=== PATIENT | female | born 1940 | race Caucasian/White ===

== ENCOUNTER 2017-09-18 06:02 | Emergency (ER) | payer MEDICARE, BC ==
--- NOTE | 2017-09-18 06:37 | Emergency Department Record ---
History of Present Illness - General Chief complaint: Mouth sores/ulcers Stated complaint: SORE IN MOUTH Time Seen by Provider: 09/18/17 06:25 Source: Patient Mode of Arrival: Ambulatory Limitations: No limitations - History of Present Illness Initial comments: 76 yo female presents with sinus pressure, nasal drainage, occasional nose bleeding, sore throat, sores in her mouth for about 2 weeks. No fever. She has right sided facial pressure. She has patch like ulcers of the mouth. She started Nystatin 3 days. No cough. She has noted swollen glands as well. She is on Methotrexate for RA. No other rash. She has a PCP and ENT but has not seen either for this issue. MD complaint: Sore throat, Other Onset/Timin -: Week(s) (2) Severity: Moderate Quality: Aching Consistency: Constant Improves with: Swallowing Worsens with: Swallowing Context-Epistaxis: Other (Occasional) Context- Ear: Other (Pressure sensation) - Related Data Home Medications Medication Instructions Recorded Confirmed Last Taken Lisinopril [Zestril] 5 mg PO DAILY 09/18/17 09/18/17 Unknown Meloxicam 15 mg PO DAILY 09/18/17 09/18/17 Unknown Methotrexate [Xatmep] 2.5 mg PO DAILY 09/18/17 09/18/17 Unknown Previous Rx's Medication Instructions Recorded Doxycycline Monohydrate 100 mg PO BID #20 tablet 09/18/17 Allergies Allergy/AdvReac Type Severity Reaction Status Date / Time latex [LATEX] Allergy Unknown Unverified 08/15/13 10:14 Quinolones [QUINOLONES] Allergy Unknown Unverified 08/15/13 10:14 Travel Screening - Travel/Exposure Within Last 30 Days Have you traveled within the last 30 days?: No Review of Systems Constitutional: Denies: Chills, Fever, Malaise, Weakness Eyes: Denies: Eye discharge, Eye pain, Photophobia, Vision change ENT: Reports: Congestion, Ear pain, Throat pain Respiratory: Reports: Cough Cardiovascular: Denies: Chest pain, Palpitations, Syncope Endocrine: Denies: Fatigue Gastrointestinal: Denies: Abdominal pain, Diarrhea, Nausea, Vomiting Genitourinary: Denies: Dysuria, Urgency Musculoskeletal: Denies: Arthralgia, Back pain, Myalgia Skin: Denies: Bruising, Change in color, Rash Neurological: Denies: Headache (facial pressure on the right maxillary area), Numbness, Weakness Hematological/Lymphatic: Denies: Anemia, Easy bleeding, Easy bruising Past Medical History - SOCIAL HISTORY Smoking Status: Never smoker Alcohol Use: None Drug Use: None - RESPIRATORY Hx Respiratory Disorders: No - CARDIOVASCULAR Hx Cardio Disorders: Yes Comment:: Mitral Valve Prolapse - NEURO Hx Neuro Disorders: No - GI Hx GI Disorders: No - Hx Genitourinary Disorders: No - ENDOCRINE Hx Endocrine Disorders: No - MUSCULOSKELETAL Hx Musculoskeletal Disorders: Yes Hx Arthritis: Yes (Rheumatoid) - PSYCH Hx Psych Problems: No - HEMATOLOGY/ONCOLOGY Hx Hematology/Oncology Disorders: No Family Medical History Any Significant Family History?: Yes Hx Cancer: Father *Cancer Comment: Colon Hx HTN: Father, Mother Physical Exam - General General Appearance: Alert, Oriented x3, Cooperative, No acute distress Limitations: No limitations - Head Head exam: Atraumatic, Normal inspection Image of Face/Head: 1 - maxillary tenderness - Eye Eye exam: Normal appearance, PERRL. negative: Conjunctival injection, Periorbital swelling, Periorbital tenderness, Scleral icterus - ENT ENT exam: Mucous membranes moist, Normal external ear exam, TM's normal bilaterally. negative: Normal exam, Mucous membranes dry, Normal orophraynx Ear exam: Normal external inspection Nasal Exam: Discharge, Dried blood, Sinus tenderness (right fromntal) Teeth exam: Normal inspection Throat exam: Other (plaque like ulcerations with some white plaques on the in buccal surface both cheeks). negative: Normal inspection, Tonsillar erythema - Neck Neck exam: Lymphadenopathy (few small anterior cervical swollen LN, mobile) - Respiratory Respiratory exam: Normal lung sounds bilaterally. negative: Respiratory distress, Rhonchi, Stridor, Wheezes - Cardiovascular Cardiovascular Exam: Regular rate, Normal rhythm, Normal heart sounds - GI/Abdominal GI/Abdominal exam: Soft. negative: Tenderness - Rectal Rectal exam: Deferred - exam: Deferred - Extremities Extremities exam: Normal inspection - Neurological Neurological exam: Alert, Oriented X3 - Psychiatric Psychiatric exam: Normal affect, Normal mood - Skin Skin exam: Dry, Intact, Normal color, Warm Course Vital Signs 09/18/17 06:07 Temperature 99.0 F Pulse Rate 73 Respiratory 20 Rate Blood Pressure 110/65 Pulse Ox 99 - Reevaluation(s) Reevaluation #1: 09/18/17 06:41 The vitals were reviewed No acute changes She clinical has symptoms consistent with sinusitis Given her methotrexate use she may be immune susceptible to infections Clinically she appears well, non toxic Disposition Disposition: Discharge Clinical Impression: Sinusitis Qualifiers: Sinusitis location: maxillary Chronicity: acute Recurrence: not specified as recurrent Qualified Code(s): J01.00 - Acute maxillary sinusitis, unspecified Disposition: Home, Self-Care Condition: (1) Good Instructions: Sinusitis (ED), Oral Candidiasis (ED) Additional Instructions: Call your doctor and your ENT for follow up of your symptoms Be seen immediately if you have fever, cough, short of breath, worse or any new concerns Continue your Nystatin as well discussed Prescriptions: Doxycycline Monohydrate 100 mg PO BID #20 tablet Forms: Patient Portal Access Time of Disposition: 06:43 Quality - Quality Measures Quality Measures: N/A - Blood Pressure Screening Does Patient Have Any of the Following: No Blood Pressure Classification: Normal BP Reading Systolic Measurement: 110 Diastolic Measurement: 65 Screening for High Blood Pressure: < Normal BP, F/U Not Required > [G8783]
== END 2017-09-18 06:56 | disposition home or self-care (01) ==
LOC: ER 06:02
DX: J01.00 Acute maxillary sinusitis, unspecified (principal); J02.9 Acute pharyngitis, unspecified; M06.9 Rheumatoid arthritis, unspecified
CPT/HCPCS: 99282

== ENCOUNTER 2019-01-13 04:05 | Emergency (ER) | payer MEDICARE ==
--- NOTE | 2019-01-13 04:16 | Emergency Department Record ---
History of Present Illness - General Chief complaint: Flank Pain Stated complaint: L FLANK PAIN Time Seen by Provider: 01/13/19 04:13 Source: Patient Mode of Arrival: Ambulatory Limitations: No limitations - History of Present Illness Initial comments: pt came in for l flank painthat is a constant dull pain but becomes sharp at times. she fell on a step 2 weeks ago and hit that area she states near her kidney MD Complaint: Other Onset/Timin -: Week(s) Quality: Dull, Sharp Consistency: Constant Worsens with: Movement - Related Data Home Medications Medication Instructions Recorded Confirmed Last Taken Aripiprazole [Abilify] 10 mg PO DAILY 01/13/19 01/13/19 01/12/19 Cholecalciferol (Vitamin D3) 2,000 unit PO DAILY 01/13/19 01/13/19 01/12/19 [Vitamin D3] Denosumab [Prolia] 60 mg SQ 01/13/19 01/12/19 Allergies Allergy/AdvReac Type Severity Reaction Status Date / Time latex [LATEX] Allergy Unknown Unverified 07/15/18 17:02 Quinolones [QUINOLONES] Allergy Unknown Unverified 07/15/18 17:02 Review of Systems Reviewed: No additional complaints except as noted below Constitutional: Reports: As per HPI. Denies: Chills, Fever, Malaise, Night sweats, Weakness, Weight change Eyes: Reports: As per HPI. Denies: Eye discharge, Eye pain, Photophobia, Vision change ENT: Reports: As per HPI. Denies: Congestion, Dental pain, Ear pain, Epistaxis, Hearing loss, Throat pain Respiratory: Reports: As per HPI. Denies: Cough, Dyspnea, Hemoptysis, Stridor, Wheezes Cardiovascular: Reports: As per HPI. Denies: Arrhythmia, Chest pain, Dyspnea on exertion, Edema, Murmurs, Orthopnea, Palpitations, Paroxysmal nocturnal dyspnea, Rheumatic Fever, Syncope Endocrine: Reports: As per HPI. Denies: Fatigue, Heat or cold intolerance, Polydipsia, Polyuria Gastrointestinal: Reports: As per HPI. Denies: Abdominal pain, Constipation, Diarrhea, Hematemesis, Hematochezia, Melena, Nausea, Vomiting Genitourinary: Reports: As per HPI. Denies: Abnormal menses, Discharge, Dyspareunia, Dysuria, Frequency, Hematuria, Incontinence, Retention, Urgency Musculoskeletal: Reports: As per HPI. Denies: Arthralgia, Back pain, Gout, Joint swelling, Myalgia, Neck pain Skin: Reports: As per HPI. Denies: Bruising, Change in color, Change in hair/nails, Lesions, Pruritus, Rash Neurological: Reports: As per HPI. Denies: Abnormal gait, Confusion, Headache, Numbness, Paresthesias, Seizure, Tingling, Tremors, Vertigo, Weakness Psychiatric: Reports: As per HPI. Denies: Anxiety, Auditory hallucinations, Depression, Homicidal thoughts, Suicidal thoughts, Visual hallucinations Hematological/Lymphatic: Reports: As per HPI. Denies: Anemia, Blood Clots, Easy bleeding, Easy bruising, Swollen glands Past Medical History - SOCIAL HISTORY Smoking Status: Never smoker Alcohol Use: None Drug Use: None - RESPIRATORY Hx Respiratory Disorders: No - CARDIOVASCULAR Hx Cardio Disorders: Yes Comment:: Mitral Valve Prolapse - NEURO Hx Neuro Disorders: No - GI Hx GI Disorders: No - Hx Genitourinary Disorders: No - ENDOCRINE Hx Endocrine Disorders: No - MUSCULOSKELETAL Hx Musculoskeletal Disorders: Yes Hx Arthritis: Yes (Rheumatoid) - PSYCH Hx Psych Problems: No - HEMATOLOGY/ONCOLOGY Hx Hematology/Oncology Disorders: No Family Medical History Any Significant Family History?: Yes *Cancer Comment: Colon Physical Exam - General General Appearance: Alert, Oriented x3, Cooperative, Mild distress - Head Head exam: Normal inspection - Eye Eye exam: Normal appearance, PERRL, EOMI Pupils: Normal accommodation - ENT ENT exam: Normal exam, Mucous membranes moist, Normal external ear exam, Normal orophraynx Ear exam: Normal external inspection. negative: External canal tenderness Nasal Exam: Normal inspection. negative: Discharge, Sinus tenderness Mouth exam: Normal external inspection, Tongue normal Teeth exam: Normal inspection. negative: Dental caries Throat exam: Normal inspection. negative: Tonsillar erythema, Tonsillar exudate - Neck Neck exam: Normal inspection, Full ROM. negative: Tenderness - Respiratory Respiratory exam: Normal lung sounds bilaterally. negative: Respiratory distress - Cardiovascular Cardiovascular Exam: Regular rate, Normal rhythm, Normal heart sounds - GI/Abdominal GI/Abdominal exam: Soft, Normal bowel sounds. negative: Tenderness - Rectal Rectal exam: Deferred - exam: Deferred - Extremities Extremities exam: Normal inspection, Full ROM, Normal capillary refill. negative: Tenderness - Back Back exam: Reports: CVA tenderness (L), Full ROM, Muscle spasm, Tenderness, Vertebral tenderness. Denies: Rash noted - Neurological Neurological exam: Alert, CN II-XII intact, Normal gait, Oriented X3 - Psychiatric Psychiatric exam: Normal affect, Normal mood - Skin Skin exam: Dry, Intact, Normal color, Warm Course Vital Signs 01/13/19 04:10 Temperature 97.9 F Pulse Rate [ 73 Pulse Ox Probe] Respiratory 24 Rate Blood Pressure 176/76 [Left Arm] Pulse Ox 98 Medical Decision Making - Lab Data Result diagrams: 01/13/19 04:37 01/13/19 04:37 Disposition Disposition: Transfer Clinical Impression: Thoracic vertebral fracture Qualifiers: Encounter type: initial encounter Thoracic vertebra fracture level: T11 Fracture type: closed Fracture morphology: wedge compression Qualified Code(s): S22.080A - Wedge compression fracture of T11-T12 vertebra, initial encounter for closed fracture Disposition: Still a Patient at [facility] Transfer To: [facility] Reason For Transfer: T11 fracture Accepting Physician: tete tim and jhoana Time Discussed w/Accepting Physician: 05:58 Forms: Patient Portal Access Quality - Quality Measures Quality Measures: N/A - Blood Pressure Screening Does Patient Have Any of the Following: No Blood Pressure Classification: Hypertensive Reading Systolic Measurement: 165 Diastolic Measurement: 79 Screening for High Blood Pressure: < First Hypertensive BP, F/U Documented > [G8950] First Hypertensive Follow-up Interventions: Follow-up with rescreen GT 1 day and LT 4 weeks.
[2019-01-13 04:47] LABS: ABSOLUTE NEUTROPHIL COUNT 3.09; BASO % 0.7 % (0-6); EOS % 5.5 % (0-6); GRAN % 54.4 % (47-80); HEMATOCRIT 34.2 % (35.0-47.0); HEMOGLOBIN 10.9 gm/dl (11.6-16.0); LYMPH % 29.9 % (16-45); MEAN CELL VOLUME 93.4 fl (81-97); MEAN CORPUSCULAR HGB CONC 31.9 g/dl (32-36); MEAN PLATELET VOLUME 9.1 fl (7.4-10.4); MONO % 9.5 % (0-9); PLATELET COUNT 201 K/uL (130-400); RED BLOOD COUNT 3.66 M/uL (3.80-5.40); RED CELL DISTRIBUTION WIDTH 12.9 % (11.5-14.5); WHITE BLOOD COUNT W/O DIFF 5.7 K/uL (4.2-12.2)
[2019-01-13 04:49] LABS: MEAN CORPUSCULAR HEMOGLOBIN 29.7 pg (27-33); URINE APPEARANCE CLEAR; URINE BILIRUBIN NEGATIVE (NEGATIVE); URINE BLOOD TRACE-I (NEGATIVE); URINE COLOR YELLOW; URINE GLUCOSE (UA) NEGATIVE (NEGATIVE); URINE KETONE NEGATIVE (NEGATIVE); URINE LEUKOCYTE ESTERASE TRACE (NEGATIVE); URINE NITRITE NEGATIVE (NEGATIVE); URINE PROTEIN NEGATIVE (NEGATIVE); URINE UROBILINOGEN 0.2 E.U./dL (0.20 - 1.00)
[2019-01-13 05:00] LABS: URINE RBC 0 - 2 (NONE SEEN); URINE SQUAMOUS EPITHELIAL CELL 0 - 2 /hpf; URINE WBC 0 - 2 (0-2/hpf)
[2019-01-13 05:01] LABS: BILIRUBIN,TOTAL 0.3 mg/dL (0.2-1.0)
[2019-01-13 05:02] LABS: TOTAL PROTEIN 7.2 g/dL (6.6-8.7)
[2019-01-13 05:06] LABS: ALB/GLOB RATIO 1.6 (1.1-1.8); ALBUMIN 4.4 g/dL (4.0-5.0)
[2019-01-13] MEDS ORDERED: MORPHINE SULFATE 5 MG/ML VIAL IVP ONE (05:52)
--- NOTE | 2019-01-17 09:57 | CT SCAN REPORT ---
EXAM: CT OF THE ABDOMEN AND PELVIS WITHOUT CONTRAST HISTORY: LEFT BACK PAIN AT KIDNEY LEVEL FOR 5-6 DAYS. PRIOR LUMBAR FUSION. TECHNIQUE: Routine noncontrast CT examination of the abdomen and pelvis was performed. Oral contrast was not utilized. Lack of oral and IV contrast utilization limits evaluation of the bowel and solid viscera respectively. Comparison: CT of the abdomen and pelvis without contrast dated 07/07/13. FINDINGS: Evaluation of the upper abdomen is limited by increased image noise from the patient's arms which were not elevated above her head. Beam hardening artifact from orthopedic hardware within the lower lumbar spine also limits evaluation. There is mild linear scarring versus atelectasis within the lung bases. Ther is a possible tiny dependent right pleural effusion. No suspicious focal abnormality is demonstrated within the liver, spleen, pancreas, adrenal glands, nor kidneys. No obstructive uropathy. Evaluation of the gallbladder is limited by incomplete distention and artifact. No definite gallstone or gross gallbladder wall thickening. No biliary ductal dilatation. No intraabdominal nor retroperitoneal lymphadenopathy. There is diffuse atherosclerosis without aneurysmal dilatation of the abdominal aorta nor iliac arteries though there is a peripherally calcified aneurysm involving the distal splenic artery measuring 13 mm in maximum diameter. The uterus is retroflexed. No pelvic mass nor adenopathy. No free pelvic fluid. There is mild fat density prominence in the left inguinal canal consistent with lipoma or a small fat filled inguinal hernia. No gross bowel dilatation nor bowel wall thickening. There is a large amount of stool within the proximal and mid colon. The appendix is visualized and normal in appearance. There is mild diverticulosis of the left colon without evidence of diverticulitis. No ascites nor free intraperitoneal air. Post laminectomy and diskectomy changes are noted at the L4-L5 level. There is posterior fusion of L4 and L5 with bilateral pedicle screws and their connecting rods in place. There is moderate superior end plate compression deformity of the T11 vertebral body with approximately 50-60% vertebral height loss. This is either acute or subacute. There is associated retropulsion of the posterior superior margin of the vertebral body causing ventral sac flattening with mild central canal stenosis. Mild perivertebral soft tissue swelling is noted at this level. The etiology of this is indeterminate. No suspicious lytic or blastic bone lesion. IMPRESSION: 1. NO CT EVIDENCE OF AN ACUTE INTRAABDOMINAL NOR INTRAPELVIC PROCESS. THERE IS A LARGE AMOUNT OF STOOL IN THE PROXIMAL AND MID PORTIONS OF THE COLON. 2. DIVERTICULOSIS OF THE LEFT COLON WITHOUT EVIDENCE OF DIVERTICULITIS. 3. MILD FAT DENSITY PROMINENCE IN THE LEFT INGUINAL CANAL CONSISTENT WITH LIPOMA OR SMALL FAT FILLED INGUINAL HERNIA. 4. POSSIBLE SMALL DEPENDENT RIGHT PLEURAL EFFUSION. 5. MODERATE SUPERIOR END PLATE COMPRESSION DEFORMITY OF THE T11 VERTEBRAL BODY, DISCUSSED IN DETAIL ABOVE. 6. 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 THIS HAS NOT SIGNIFICANTLY CHANGED SINCE 07/07/13. JOB NUMBER: [id number] [facility]
== END 2019-01-13 06:36 | disposition short-term general hospital (02) ==
LOC: ER 04:05
DX: S22.080A Wedge compression fracture of T11-T12 vertebra, initial encounter for closed fracture (principal); W10.9XXA Fall (on) (from) unspecified stairs and steps, initial encounter
CPT/HCPCS: 74176; 80053; 81001; 85025; 96374; 99285

== ENCOUNTER 2019-01-18 15:00 | Inpatient (IN) | payer MEDICARE ==
[2019-01-18] MEDS ORDERED: MELATONIN 5 MG TABLET PO PRN (16:04)
[2019-01-18] MEDS: OXYCODONE HCL/APAP 5MG/325MG TABLET PO PRN ×2 (18:22→23:03)
[2019-01-18] MEDS: ATORVASTATIN 20 MG TABLET PO SCH (23:03)
[2019-01-18] MEDS: CALCIUM CARB/VITAMIN D 500MG/200IU PO SCH (23:03)
[2019-01-19] MEDS: OXYCODONE HCL/APAP 5MG/325MG TABLET PO PRN ×3 (06:14→21:17)
--- NOTE | 2019-01-19 10:35 | History & Physical ---
History of Present Illness - Date Date of Service for History & Physical: 01/22/19 - History of Present Illness Admitting Diagnosis: compression fracture t11 History of Present Illness: 78 yo female presents for swing bed admission s/p fall and T11 compression fx. Pt reports that she was walking up her porch steps, carrying groceries, caught her foot on the opposite side, fell backwards on the steel base for TV antenna. Pt reports that she did not get evaluated for 9-10 days, presenting to ER 01-16-19 for back pain. Pt at [facility] for PT/OT related to recent fall and compression fx. Pt to wear back brace at all time when OOB. Pt is alert and oriented x 4 at this time but documentation from neuropsych evreynaldo while inpt has limited her ability to make medical decisions. 01/19/19 Pt in no distress, sitting up in chair with brace in place, dressed for the day at time of assessment. Pt moving all extremities, repositioning self in chair with little difficulty. Pt does not appear to be in any distress. PCP Afshin Hidalgo General - Cognitive Patterns Orientation: Person, Responds to Name, Recognizes Familiar Faces or Places - Communication Preferred Language?: [employer] Required: No Level of Education: College Preferred Method of Learning: Reading Comprehension Ability: Impairment Able to Read: Yes Able to Write: Yes Select best description of speech pattern: Clear Speech Ability to express ideas and wants: Usually Understood Understanding verbal content: Usually Understands - Psychosocial Well-Being Usual Living Arrangement: Spouse - Physical Functioning Activity Level: Up with assist x1 Turning: Self ad rosa ROM Ability: Moves all extremities Assistive Devices: 2 Wheel Walker Ambulation Ability: Needs Assist Bed Mobility: Independent Transfer Ability: Needs Assist Bathing Ability: Needs Assist Personal Hygiene: Needs Assist Dressing Ability: Needs Assist Eating (Feeding) Ability: Independent Toileting Ability: Needs Assist Administer Own Medication: Needs Assist - Continence Bowel Pattern: Normal for Patient Bladder Pattern: Normal - Dental Status Unable to examine: No Broken or loosely fitting full or partial dentures: No No natural teeth or tooth fragment(s) (edentulous): No Abnormal mouth tissue (ulcers, masses, oral lesions, etc.): No Obvious or likely cavity or broken natural teeth: No Inflamed or bleeding gums or loose natural teeth: No Mouth/facial pain, discomfort or difficulty chewing: No - Nutrition Screening Poor oral intake > 1 week: No Unplanned weight loss in specified time frame: No Nutrition Support via tube feedings or parenteral nutrition: No Pressure Ulcer: No Significantly underweight define as BMI <18.5 kg/m2: No Albumin <2.5mg/dL: No Persistent nausea/vomiting/diarrhea >3 days: No Difficulty chewing/swallowing/mouth sores: No Admitting Diagnosis: No Nutrition Risk Score: Low Risk Review of Systems Constitutional: Denies: Chills Eyes: Denies: Eye discharge ENT: Denies: Congestion Cardiovascular: Denies: Arrhythmia, Chest pain, Dyspnea on exertion Endocrine: Denies: Fatigue Gastrointestinal: Denies: Abdominal pain Musculoskeletal: Reports: Back pain Neurological: Reports: Confusion (reported by referring facility), Weakness. Denies: Numbness, Paresthesias, Tingling Past Medical History - SOCIAL HISTORY Smoking Status: Never smoker - SURGICAL HISTORY Past Surgical History: BACK - RESPIRATORY Hx Respiratory Disorders: No - CARDIOVASCULAR Hx Cardio Disorders: Yes Hx Hypertension: Yes Comment:: Mitral Valve Prolapse - NEURO Hx Neuro Disorders: Yes Comment:: memory loss, confusion - GI Hx GI Disorders: Yes Hx Reflux: Yes - Hx Genitourinary Disorders: No - ENDOCRINE Hx Endocrine Disorders: No Hx Diabetes: No Hx Thyroid Disease: Yes (goiter) - MUSCULOSKELETAL Hx Musculoskeletal Disorders: Yes Hx Arthritis: Yes (Rheumatoid) Hx Back Injury: Yes (comp fx t11) - PSYCH Hx Psych Problems: No - HEMATOLOGY/ONCOLOGY Hx Hematology/Oncology Disorders: No Family Medical History Any Significant Family History?: Yes *Cancer Comment: Colon H&P Meds/Allergies - Allergies Allergies: Allergies Allergy/AdvReac Type Severity Reaction Status Date / Time latex [LATEX] Allergy Unknown Unverified 07/15/18 17:02 Quinolones [QUINOLONES] Allergy Unknown Unverified 07/15/18 17:02 - Active Medications Active Medications: Current Medications Aripiprazole (Aripiprazole) 20 mg PO DAILY [facility] Atorvastatin Calcium (Lipitor) 40 mg PO QHS [facility] Last Admin: 01/18/19 23:03 Dose: 40 mg Documented by: Calcium/Vitamin D (Calcium 500+D Tablet) 1 tab PO BID [facility] Last Admin: 01/18/19 23:03 Dose: 1 tab Documented by: Enoxaparin Sodium (Lovenox) 40 mg SQ DAILY [facility] Fluoxetine HCl (Prozac) 20 mg PO DAILY [facility] Folic Acid () 1 mg PO DAILY [facility] Losartan Potassium (Losartan Potassium) 100 mg PO DAILY [facility] Magnesium Oxide (Mag Ox) 400 mg PO DAILY [facility] Melatonin (Melatonin) 10 mg PO QHS PRN PRN Reason: SLEEP Meloxicam (Mobic) 15 mg PO DAILY [facility] Oxycodone/Acetaminophen (Percocet 5-325 Mg Tablet) 1 udtab PO Q6H PRN PRN Reason: PAIN - MILD TO MODERATE (1-7) Last Admin: 01/19/19 06:14 Dose: 1 udtab Documented by: Polyethylene Glycol (Miralax) 17 gm PO DAILY [facility] Vitamin D (Vitamin D3) 1,000 unit PO DAILY [facility] Physical Exam - Vital Signs Vital Signs: Vital Signs - Last 24 Hrs Temp Pulse Resp BP Pulse Ox 01/18/19 22:45 98.9 F 81 16 113/61 97 01/18/19 15:30 97.8 F 81 16 137/67 95 - General General Appearance: Alert, Oriented x3, Cooperative, No acute distress - Head Head exam: Atraumatic - Eye Eye exam: Normal appearance, PERRL, Conjunctival injection Pupils: Normal accommodation - ENT ENT exam: Normal exam, Mucous membranes moist Ear exam: Normal external inspection Nasal Exam: Normal inspection - Neck Neck exam: Normal inspection - Respiratory Respiratory exam: Normal lung sounds bilaterally - Cardiovascular Cardiovascular Exam: Regular rate, Normal rhythm, Normal heart sounds Peripheral Pulses: 3+: Radial (R), Radial (L), Dorsalis Pedis (R), Dorsalis Pedis (L) - GI/Abdominal GI/Abdominal exam: Normal bowel sounds - Rectal Rectal exam: Deferred - exam: Deferred - Back Back exam: Reports: Tenderness - Neurological Neurological exam: Abnormal gait, CN II-XII intact, Oriented X3 - Psychiatric Psychiatric exam: Normal affect, Normal mood - Skin Skin exam: Dry, Intact Discharge Potential - Discharge Needs Community Services Used Prior to Admission: None Patient Discharge Plan Description: Return Home Community Services Needed at Discharge: Home Health Aide, Home Health Nurse, Occupational Therapy, Physical Therapy, Transportation, Pathways to Better Health Plan - Swing Bed Certification Initial Certification Due: 01/18/19 14 Day Re-Cert Due: 02/01/19 44 Day Re-Cert Due: 03/03/19 74 Day Re-Cert Due: 04/02/19 - Detailed Diagnosis and Plan (1) Physical deconditioning Status: Acute Base Code: R53.81 - OTHER MALAISE Comment: 01/19/19 -PT and OT eval today and treatment to start -pt up and OOB daily and for all meals with brace on (2) Thoracic vertebral fracture Status: Acute Qualifiers: Encounter type: initial encounter Thoracic vertebra fracture level: T11 Fracture type: closed Fracture morphology: wedge compression Qualified Code(s): S22.080A - Wedge compression fracture of T11-T12 vertebra, initial encounter for closed fracture Base Code: S22.009A - UNSP FRACTURE OF UNSP THORACIC VERTEBRA, INIT FOR CLOS FX Comment: 01/19/19 -T11 compression wedge fx -pain control with percocet 5/325 q6 hr PRN at this time and will attempt to transition to norco before d/c. pt was ordered 5-20mg q4 hrs while inpt but that was not continued based on diagnositics, age, and risk/benefit -back brace on at all times while OOB (3) DVT prophylaxis Status: Acute Base Code: Z29.9 - ENCOUNTER FOR PROPHYLACTIC MEASURES, UNSPECIFIED Comment: lovenox 40mg SQ daily for DVT prophylaxis, pt has high risk r/t imobility and age (4) Code status needs review Status: Acute Base Code: AHD4999 - Comment: 01/19/19 -pt has DPOA paperwork in chart but does not specify code status outside of exsiting limiting illness and pt is not able to make medical decisions on her own -awaiting (DPOA) to arrive and discuse code status -pt has arrived, pt to be full code and then re-evaluate for prognosis at that time
--- NOTE | 2019-01-19 10:49 | Rehab Evaluation ---
Patient Information - Patient Information Diagnosis: T11 Compression Fracture Ordered Treatment: PT Evaluate and Treat Status: Initial Evaluation Surgery: No History: Detail (Patient was admitted to a swing bed on 01/18/19.) Past Medical/Surgical Hx: PAST MEDICAL/SURGICAL HISTORY Past Surgical History BACK PMH - Respiratory Hx Respiratory Disorders No PMH - Cardiovascular Hx Cardiovascular Disorders Yes Hx Hypertension Yes Comment: Mitral Valve Prolapse PMH - Neuro Hx Neurological Disorders Yes Comment: memory loss, confusion PMH - GI Hx Gastrointestinal Disorders Yes Hx Gastroesophageal Reflux Yes PMH - Hx Genitourinary Disorders No PMH - Endocrine Hx Endocrine Disorders No Hx Diabetes No Hx Thyroid Disease Yes: goiter PMH - Musculoskeletal Hx Musculoskeletal Disorders Yes Hx Arthritis Yes: Rheumatoid Hx Back Injury Yes: comp fx t11 Hx Osteoporosis Yes PMH - Psych Hx Psychiatric Problems No PMH - Hematology/Oncology Hx Hematology/Oncology No Disorders Premorbid Status: Detail (Patient stated that she was independent in ADLs of cooking, laundry, and housework prior to her injury. She reported that she was able to walk community distances independently without an AD and could independently negotiate the 5 stairs in and out of her home.) Precautions: [place], Fall, Other (Patient wears a TLSO that may be put on at the edge of the bed. No bending or twisting.) - Time With Patient Total Time Spent With Patient (Min): 30 Treatment Procedures: Detail (Initial evaluation; low complexity Patient was left in the bedside chair with the call light and bedside table within reach. The chair alarm was set and the nursing staff was notified of her position.) Subjective Information - Subjective Information Per Patient (Patient reported that she had no pain at the time of the evaluation. She reports that she has some cramping in her feet and calves at times.) Objective Data - Pain Pain Present: No - Mental Status Patient Orientation: Person (Patient was able to identify herself, birthdate, and age.), Place (Patient was able to identify where she was at.), Time (Patient was able to identify the month, year, and her prior accident.) - Visual Perception Appears within normal limits for therapeutic activities - ROM Within normal limits (Patient's AROM is within normal limits for functional activities.) - Strength/Tone Not within normal limits (LE Strength: bilateral hip flexion 4/5, bilateral hip abduction and adduction 5/5 in sitting, bilateral knee extension 5/5, bilateral knee flexion 4/5, bilateral ankle dorsiflexion 5/5) - Coordination Appears within normal limits for therapeutic activities - Bed Mobility Needs Assist (Patient was not assessed for bed mobility at this time due to patient being in bedside chair.) - Transfers Independent (Patient was able to perform sit to stand and stand to sit independently.) - Balance Balance Sitting: Good Balance Standing: Good (The Tinetti Assessment tool was completed with a score of 26/28 putting the patient in the low fall risk category. The Cruz Balance test was started to test higher functioning balance skills to assess patient's balance with these types of tasks. With the tasks that have been tested thus far, patient has some difficulties maintaining balance with these types of tasks.) - Sensation Intact - Gait Detail (Patient was able to ambulate 60 feet over smooth surfaces with a front- wheeled walker with supervision. She ambulates with a reciprocal gait pattern. Patient ambulated without a walker for 10 feet, and was steady on her feet. She reported that she experiences less pain when walking with a walker.) Therapy Assessment - Therapy Assessment Detail (Patient presents with decreased balance, weakness, and gait ab normalities that make her a good candidate for swing bed therapy services. Patient demonstrates some impulsiveness and safety judgement risks that cause her to be unsafe at times. Therapy will help patient to return to her previous functional status before returning home.) Problem List - Problem List Physical Therapy Problem List: Detail (1. Decreased balance 2. Weakness in LEs 3. Gait abnormalities 4. Decreased ability to climb stairs) Goals - Goals Physical Therapy Goals: 1. Patient will be able to ambulate community distances with or without an assistive device with supervision for safety to return to her prior functional level following discharge. 2. Patient will be able to ascend and descend 5 stairs safely and correctly to be able to get in and out of her home with supervision for safety. 3. Patient's balance will be formally assessed using the Cruz Balance scale to measure her higher level balance abilities. 4. Patient will be independent in a HEP to help increase strength of LEs to maintain her functional status. Prognosis - Prognosis Good Plan - Plan Physical Therapy Plan: Patient will be seen for 1-2 sessions, M-F for gait training, stair training, therapeutic exercise, therapeutic activities, HEP instruction, and neuromuscular re-education.
[2019-01-19] MEDS: CHOLECALCIFEROL 1,000 UNIT TABLET PO SCH (11:01)
[2019-01-19] MEDS: ENOXAPARIN 40 MG/0.4 ML SYR SQ SCH (11:01)
[2019-01-19] MEDS: MELOXICAM 7.5 MG TABLET PO SCH (11:02)
[2019-01-19] MEDS: MAGNESIUM OXIDE 400 MG TABLET PO SCH (11:02)
[2019-01-19] MEDS: FLUOXETINE HCL 20 MG CAPSULE PO SCH (11:02)
[2019-01-19] MEDS: FOLIC ACID 1 MG TABLET PO SCH (11:02)
[2019-01-19] MEDS: CALCIUM CARB/VITAMIN D 500MG/200IU PO SCH ×2 (11:02→21:16)
[2019-01-19] MEDS: LOSARTAN POTASSIUM 100 MG TABLET PO SCH (11:02)
--- NOTE | 2019-01-19 11:02 | Rehab Evaluation ---
Patient Information - Patient Information Diagnosis: T11 Compression Fracture Ordered Treatment: OT Evaluate and Treat Status: Initial Evaluation Surgery: No History: Detail (Patient was admitted to a swing bed on 01/18/19.) Past Medical/Surgical Hx: PAST MEDICAL/SURGICAL HISTORY Past Surgical History BACK PMH - Respiratory Hx Respiratory Disorders No PMH - Cardiovascular Hx Cardiovascular Disorders Yes Hx Hypertension Yes Comment: Mitral Valve Prolapse PMH - Neuro Hx Neurological Disorders Yes Comment: memory loss, confusion PMH - GI Hx Gastrointestinal Disorders Yes Hx Gastroesophageal Reflux Yes PMH - Hx Genitourinary Disorders No PMH - Endocrine Hx Endocrine Disorders No Hx Diabetes No Hx Thyroid Disease Yes: goiter PMH - Musculoskeletal Hx Musculoskeletal Disorders Yes Hx Arthritis Yes: Rheumatoid Hx Back Injury Yes: comp fx t11 Hx Osteoporosis Yes PMH - Psych Hx Psychiatric Problems No PMH - Hematology/Oncology Hx Hematology/Oncology No Disorders Premorbid Status: Detail (Patient stated that she was independent in IADLs of cooking, laundry, and housework prior to her injury. She reported that she was able to walk community distances independently without an AD and could independently negotiate the 5 stairs in and out of her home.) Social History: Detail (Pt lives with spouse in a 1 story house. She has 5 steps and 2 railings at the front entrance and 4 steps and 1 railing at the rear entrance. She has a tub/shower combination with a grab bar and a standard height toilet, no grab bar. She typically sits down into the tub to bathe.) Precautions: [place], Fall, Other (Patient wears a TLSO that may be put on at the edge of the bed. No bending or twisting.) - Time With Patient Total Time Spent With Patient (Min): 40 Treatment Procedures: Detail (OT eval low complexity) Subjective Information - Subjective Information Per Patient Objective Data - Pain Pain Present: No - Mental Status Patient Orientation: Oriented x3 (Pt oriented x 3 and able to follow all commands.) - Visual Perception Appears within normal limits for therapeutic activities (Pt wears glasses for reading.) - ROM Within normal limits (Yovany UE AROM WNL) - Strength/Tone Within normal limits ([place] UE strength 4+/5 throughout) - Coordination Appears within normal limits for therapeutic activities - Transfers Independent (Ind with sit to stand from recliner chair height) - Balance Balance Sitting: Good Balance Standing: Good - Sensation Intact - Gait Detail (Pt able to ambulate in hallway with 2 wheeled walker and short distance in room without an assistive device.) - ADL's/IADL's Detail (Pt able to stand at sink and complete oral hygiene and brushing hair. Pt and nursing report she was Ind with total body dressing this am with assist for TLSO.) Therapy Assessment - Therapy Assessment Detail (Pt presents with high level of functioning. Need to further assess tub transfer and IADL tasks to ensure safety and Ind.) Problem List - Problem List Occupational Therapy Problem List: Detail (1. Need to further assess tub transfer and bathing. 2. Need to further assess IADL tasks.) Goals - Goals Occupational Therapy Goals: 1. Pt will be safe and Ind with tub transfer and bathing. 2. Pt will be Ind with kitchen tasks. Prognosis - Prognosis Good Plan - Plan Occupational Therapy Plan: OT 2-4 times per week to address goals as above.
[2019-01-19] MEDS: ARIPIPRAZOLE 20 MG PO SCH (11:03)
[2019-01-19] MEDS: POLYETHYLENE GLY 17 GM PACKET PO SCH (11:03)
[2019-01-19] MEDS: CALCIUM CARBONATE 500 MG TAB.CHEW PO PRN (20:21)
[2019-01-19] MEDS: ATORVASTATIN 20 MG TABLET PO SCH (21:16)
[2019-01-20] MEDS: OXYCODONE HCL/APAP 5MG/325MG TABLET PO PRN ×3 (04:48→21:03)
[2019-01-20] MEDS: MELOXICAM 7.5 MG TABLET PO SCH (09:16)
[2019-01-20] MEDS: ENOXAPARIN 40 MG/0.4 ML SYR SQ SCH (09:16)
[2019-01-20] MEDS: CHOLECALCIFEROL 1,000 UNIT TABLET PO SCH (09:16)
[2019-01-20] MEDS: FLUOXETINE HCL 20 MG CAPSULE PO SCH (09:16)
[2019-01-20] MEDS: FOLIC ACID 1 MG TABLET PO SCH (09:17)
[2019-01-20] MEDS: CALCIUM CARB/VITAMIN D 500MG/200IU PO SCH ×2 (09:17→21:04)
[2019-01-20] MEDS: MAGNESIUM OXIDE 400 MG TABLET PO SCH (09:17)
[2019-01-20] MEDS: LOSARTAN POTASSIUM 100 MG TABLET PO SCH (09:17)
[2019-01-20] MEDS: POLYETHYLENE GLY 17 GM PACKET PO SCH (09:18)
[2019-01-20] MEDS: ARIPIPRAZOLE 20 MG PO SCH (09:20)
--- NOTE | 2019-01-20 11:17 | Physical Therapy Tx Note ---
Physical Therapy Tx Note - Treatment Note Tolerated: Good Total Time Spent With Patient: 30 Physical Therapy Tx Note: Detail (Patient was standing with nursing in room upon [employer] [employer] arrival. Patient states no new complaints. Patient ambulated 378 feet without assistive device CGA x1. Patient descended and ascended 3 steps with using stairwell railing CGA x1. Patient transferred sit to and from stand CGA x1. Patient performed the following balance exercises x30 seconds each: feet together, feet together looking up and down, feet together looking side to side, feet together with eyes closed, feet together with pertubations, and stride stance. Patient had 1 seated rest break with standing balance exercises, sit to and from stand CGA x1. Patient transferred sit to and from stand CGA x1. Patient performed the following exercises without hand hold x20 feet each CGA x1: marching, walking backwards, sidestepping, and tandem walking with one hand hold. Patient transferred sit to and from stand CGA x1. Patient performed the following standing exercises x10 reps each: heel raises, toe raises, hip abduction, hip extension, hamstring curls, and squats x8. Patient tolerated treatment well. Patient displays decreased balance with tandem walking, and backward walking. Patient reports some fatigue with hamstring curls, and squats. Patient displays some impulsivity with turning during ambulation. Patient was left seated in chair with call light within reach.) Physical Therapy Problem List: Detail (1. Decreased balance 2. Weakness in LEs 3. Gait abnormalities 4. Decreased ability to climb stairs) Physical Therapy Goals: 1. Patient will be able to ambulate community distances with or without an assistive device with supervision for safety to return to her prior functional level following discharge. 2. Patient will be able to ascend and descend 5 stairs safely and correctly to be able to get in and out of her home with supervision for safety. 3. Patient's balance will be formally assessed using the Cruz Balance scale to measure her higher level balance abilities. 4. Patient will be independent in a HEP to help increase strength of LEs to maintain her functional status. Prognosis: Good Physical Therapy Plan: Patient will be seen for 1-2 sessions, M-F for gait training, stair training, therapeutic exercise, therapeutic activities, HEP ins truction, and neuromuscular re-education.
--- NOTE | 2019-01-20 13:58 | Physical Therapy Tx Note ---
Physical Therapy Tx Note - Treatment Note Tolerated: Good Total Time Spent With Patient: 30 Physical Therapy Tx Note: Detail (Patient was walking in room upon [facility] arrival. Patient states she just took her brace off. Patient donned brace with assistance. Patient ambulated 282 feet without assistive device CGA x1. Patient states she's tired this afternoon, and low back sore. Patient performed the following exercises seated in chair x10-20 reps each: marching, LAQ, hamstring curls with red theraband, glut squeezes, hip abduction with red theraband, adductor squeezes, heel raises, and toe raises. Patient reports feeling tired after treatment. Patient was left seated in chair with call light within reach.) Physical Therapy Problem List: Detail (1. Decreased balance 2. Weakness in LEs 3. Gait abnormalities 4. Decreased ability to climb stairs) Physical Therapy Goals: 1. Patient will be able to ambulate community distances with or without an assistive device with supervision for safety to return to her prior functional level following discharge. 2. Patient will be able to ascend and descend 5 stairs safely and correctly to be able to get in and out of her home with supervision for safety. 3. Patient's balance will be formally assessed using the Cruz Balance scale to measure her higher level balance abilities. 4. Patient will be independent in a HEP to help increase strength of LEs to maintain her functional status. Prognosis: Good Physical Therapy Plan: Patient will be seen for 1-2 sessions, M-F for gait training, stair training, therapeutic exercise, therapeutic activities, HEP instruction, and neuromuscular re-education.
[2019-01-20] MEDS: ATORVASTATIN 20 MG TABLET PO SCH (21:04)
[2019-01-21] MEDS: OXYCODONE HCL/APAP 5MG/325MG TABLET PO PRN ×3 (04:48→20:51)
[2019-01-21] MEDS: MAGNESIUM OXIDE 400 MG TABLET PO SCH (09:38)
[2019-01-21] MEDS: FLUOXETINE HCL 20 MG CAPSULE PO SCH (09:38)
[2019-01-21] MEDS: FOLIC ACID 1 MG TABLET PO SCH (09:39)
[2019-01-21] MEDS: MELOXICAM 7.5 MG TABLET PO SCH (09:39)
[2019-01-21] MEDS: CHOLECALCIFEROL 1,000 UNIT TABLET PO SCH (09:39)
[2019-01-21] MEDS: CALCIUM CARB/VITAMIN D 500MG/200IU PO SCH ×2 (09:39→21:00)
[2019-01-21] MEDS: LOSARTAN POTASSIUM 100 MG TABLET PO SCH (09:40)
[2019-01-21] MEDS: ENOXAPARIN 40 MG/0.4 ML SYR SQ SCH (09:40)
[2019-01-21] MEDS: POLYETHYLENE GLY 17 GM PACKET PO SCH (09:50)
[2019-01-21] MEDS: ARIPIPRAZOLE 20 MG PO SCH (10:30)
--- NOTE | 2019-01-21 11:53 | Occupational Therapy Tx Note ---
Occupational Therapy Tx Note - Treatment Note Tolerated: Good Total Time Spent With Patient: 50 (ADL) Occupational Therapy Treatment Note: Detail (S: Pt up in chair, finishing breakfast. O: Pt and spouse educated on bathing with TLSO and precautions, they verbalized understanding. Pt amb in room to gather clean clothing Indly. Pt amb to toilet to doff TLSO and she was able to doff brace in sitting with verbal cues. She was Ind with doffing shirt, pants, slipper socks and underwear in sitting within bending precautions. Pt donned TLSO in sitting with min assist and mod verbal cues. Pt amb to bathtub and transferred into sitting in bottom of tub with grab bars Indly. Pt completed total body bathing Indly in sitting. Pt able to transfer to standing using grab bars Indly in bathtub. Pt dried self Indly and amb to EOB Indly. Pt donned briefs and pants Indly. Pt doffed TLSO with verbal cues and donned shirt Indly. Pt sit to supine Indly. A: Pt is Ind with tub transfer using grab bars, Ind with with total body dressing, requires min assist and mod verbal cues for donning/doffing of TLSO.) Occupational Therapy Problem List: Detail (1. Need to further assess tub transfer and bathing. 2. Need to further assess IADL tasks.) Occupational Therapy Goals: 1. Pt will be safe and Ind with tub transfer and bathing. 2. Pt will be Ind with kitchen tasks. Prognosis: Good Occupational Therapy Plan: OT 2-4 times per week to address goals as above.
--- NOTE | 2019-01-21 16:06 | Physical Therapy Tx Note ---
Physical Therapy Tx Note - Treatment Note Tolerated: Good Total Time Spent With Patient: 30 Physical Therapy Tx Note: Detail (Patient stated that she was feeling good today. She was able to ambulate 200+ feet without an AD independently to the therapy gym down a long ramp in the hospital over smooth surfaces. During ambulation patient lacked awareness of space as she almost ran into the door and objects in the therapy gym. She seemed to lose concentration when having a conversation. The Cruz Balance Assessment was completed with a score of 37/56 which puts the patient in the category of a medium fall risk. She had the most difficulty with the tasks of tandem stance, stand on one foot, and alternating stool touches. Patient was instructed in a HEP to complete daily that consisted of hip flexion, hip abduction, hip adduction, knee flexion, knee extension, and ankle dorsiflexion. Exercises were completed today with the patient x15 using red Theraband. Patient understood exercises and demonstrated them correctly. Patient ambulated 200+ feet to the stairs and was able to ascend and descend 10 stairs taking them one at a time. When trying to the stairs reciprocally the patient had pain in her back and when trying them one at a time she said that it was less painful for her. The patient ambulated back to her room and got back into bed independently. She was left in bed with her call light and bedside table within reach. The bed alarm was set and the nursing staff was notified of her position. Patient's high level balance skills are low and her cognition affects her safety judgement. Patient is safe to ambulate without a walker.) Physical Therapy Problem List: Detail (1. Decreased balance 2. Weakness in LEs 3. Gait abnormalities 4. Decreased ability to climb stairs) Physical Therapy Goals: 1. Patient will be able to ambulate community distances with or without an assistive device with supervision for safety to return to her prior functional level following discharge. GOAL MET. 2. Patient will be able to ascend and descend 5 stairs safely and correctly to be able to get in and out of her home with supervision for safety. GOAL MET. 3. Patient's balance will be formally assessed using the Cruz Balance scale to measure her higher level balance abilities. GOAL MET. 4. Patient will be independent in a HEP to help increase strength of LEs to maintain her functional status. GOAL MET. 5. Patient's will observe her balance activities, gait, and stair training during a PT session to be able to assist the patient at home. Physical Therapy Plan: Patient will be seen for 1-2 sessions, M-F for gait training, stair training, therapeutic exercise, therapeutic activities, HEP instruction, and neuromuscular re-education. Most PT goals have been met at this time. Patient's should observe a PT session to be able to assist the patient when she returns home.
[2019-01-21] MEDS ORDERED: ACETAMINOPHEN 325 MG TAB PO PRN (17:38)
[2019-01-21] MEDS: CALCIUM CARBONATE 500 MG TAB.CHEW PO PRN (20:51)
[2019-01-21] MEDS: ATORVASTATIN 20 MG TABLET PO SCH (21:00)
--- NOTE | 2019-01-22 12:26 | Discharge Summary ---
Providers Discharge Summary Date: 01/22/19 Date of admission: 01/18/19 15:23 Expected Date of Discharge: 01/22/19 Attending physician: JANNA GARCIA Primary care physician: PRABHU PRADO M.D. Consults: Consult Orders 01/18/19 16:18 Consult - Case Management NOW Comment: Reason For Exam: EASI screening Physical Exam - Vital Signs Vital Signs: Vital Signs - Last 24 Hrs Temp Pulse Resp BP BP Pulse Ox 01/21/19 20:00 98 F 72 16 144/68 96 01/21/19 13:00 97.9 F 154/60 - General General Appearance: Alert, Oriented x3, Cooperative, No acute distress - Head Head exam: Atraumatic - Eye Eye exam: Normal appearance, PERRL, Conjunctival injection Pupils: Normal accommodation - ENT ENT exam: Normal exam, Mucous membranes moist Ear exam: Normal external inspection Nasal Exam: Normal inspection - Neck Neck exam: Normal inspection - Respiratory Respiratory exam: Normal lung sounds bilaterally - Cardiovascular Cardiovascular Exam: Regular rate, Normal rhythm, Normal heart sounds Peripheral Pulses: 3+: Radial (R), Radial (L), Dorsalis Pedis (R), Dorsalis Pedis (L) - GI/Abdominal GI/Abdominal exam: Normal bowel sounds - Rectal Rectal exam: Deferred - exam: Deferred - Back Back exam: Reports: Tenderness - Neurological Neurological exam: Abnormal gait, CN II-XII intact, Oriented X3 - Psychiatric Psychiatric exam: Normal affect, Normal mood - Skin Skin exam: Dry, Intact Hospitalization - Hospitalization Admission Diagnosis: compression fracture t11 - Problem List (1) Physical deconditioning Status: Acute Base Code: R53.81 - OTHER MALAISE Comment: 01/19/19 -PT and OT eval today and treatment to start -pt up and OOB daily and for all meals with brace on (2) Thoracic vertebral fracture Status: Acute Discharge Diagnosis: Encounter type: initial encounter Thoracic vertebra fracture level: T11 Fracture type: closed Fracture morphology: wedge compression Qualified Code(s): S22.080A - Wedge compression fracture of T11-T12 vertebra, initial encounter for closed fracture Base Code: S22.009A - UNSP FRACTURE OF UNSP THORACIC VERTEBRA, INIT FOR CLOS FX Comment: 01/19/19 -T11 compression wedge fx -pain control with percocet 5/325 q6 hr PRN at this time and will attempt to transition to norco before d/c. pt was ordered 5-20mg q4 hrs while inpt but that was not continued based on diagnositics, age, and risk/benefit -back brace on at all times while OOB (3) DVT prophylaxis Status: Acute Base Code: Z29.9 - ENCOUNTER FOR PROPHYLACTIC MEASURES, UNSPECIFIED Comment: lovenox 40mg SQ daily for DVT prophylaxis, pt has high risk r/t imobility and age (4) Code status needs review Status: Acute Base Code: [id number] - Comment: 01/19/19 -pt has DPOA paperwork in chart but does not specify code status outside of exsiting limiting illness and pt is not able to make medical decisions on her own -awaiting (DPOA) to arrive and discuse code status -pt has arrived, pt to be full code and then re-evaluate for prognosis at that time - Disposition Nursing staff reported that pt became irritable and demanding to be allowed to go home. Pt called (DPOA) and insisted he pick her up and leave AMA. Nursing staff contacted this provider for update, pt is not allowed to make medical decisions for self but if wanted to sign her out AMA that would be acceptable as pt has been progressing well with PT/OT but has yet to be released for discharge. Pt left facility with early this AM. - Hospitalization Course Disposition: Against Medical Advice Hospital Course: 78 yo female presents for swing bed admission s/p fall and T11 compression fx. Pt reports that she was walking up her porch steps, carrying groceries, caught her foot on the opposite side, fell backwards on the steel base for TV antenna. Pt reports that she did not get evaluated for 9-10 days, presenting to ER 01-16-19 for back pain. Pt at [facility] for PT/OT related to recent fall and compression fx. Pt to wear back brace at all time when OOB. Pt is alert and oriented x 4 at this time but documentation from neuropsych eval while inpt has limited her ability to make medical decisions. 01/19/19 Pt in no distress, sitting up in chair with brace in place, dressed for the day at time of assessment. Pt moving all extremities, repositioning self in chair with little difficulty. Pt does not appear to be in any distress. PCP Prabhu Prado Condition at Discharge: (2) Stable Discharge Medications - Discharge Medications Home Medications: Ambulatory Orders Meloxicam 15 mg PO DAILY 09/18/17 [Last Taken 01/12/19] Fluoxetine HCl 20 mg PO DAILY 07/15/18 [Last Taken 01/12/19] Folic Acid 2 mg PO DAILY 07/15/18 [Last Taken 01/12/19] Aripiprazole [Abilify] 10 mg PO DAILY 01/13/19 [Last Taken 01/12/19] Cholecalciferol (Vitamin D3) [Vitamin D3] 2,000 unit PO DAILY 01/13/19 [Last Taken 01/12/19] Denosumab [Prolia] 60 mg SQ 01/13/19 [Last Taken 01/12/19] Discharge Plan - Discharge Instructions Quality Measures - Quality Measures Quality Measures: Advance Directives, Documentation of Current Medications in Medical Record, Elder Maltreatment Screen and Follow-Up Plan, Screening for High Blood Pressure and F/U Documented - Current Medications Quality Measure: Measure #130: Documentation of Current Medications Documentation of Current Medications: <Current Medications Documented/Reviewed> [G8427] - Blood Pressure Screening Quality Measure: Screening for High Blood Pressure and Follow-Up Documented Does Patient Have Any of the Following: Active Dx of HTN Blood Pressure Classification: Hypertensive Reading Systolic Measurement: 154 Diastolic Measurement: 60 Screening for High Blood Pressure: Patient Exclusion, Hx of HTN [G9744] - Advance Directives Quality Measure: Measure #47: Care Plan Advance Directives Established: Yes Advance Directives Information Provided To Patient: Already Provided Advance Directives on File: Yes Living Will: No Power of Fmd Teacher: Yes Power of Fmd Teacher Name: marialuisa garner Advance Care Planning: <Care Plan/Decision Maker Documented; Discussed & Documented> [1121F] - Elder Abuse Suspicion Index Screening: Elder Abuse Suspicion Index Screening Rely on people for bathing, dressing, shopping, banking, etc: Yes Prevented from getting food, clothes, medication, etc: No Made to feel shamed or threatened by someone: No Forced to sign papers or use money against will: No Feel afraid, touched in ways not wanted or hurt physically: Yes Poor eye contact, withdrawn, malnourished, cuts or bruises: No Screening Result: Positive result, One YES response in questions 2-6. EASI Reference Information: Shola GORDILLO, Luisana C, Sherin D, Stiven Steiner.Development and validation of a tool to assist physicians identification of elder abuse: The Elder Abuse Suspicion Index (EASI ). Journal of Elder Abuse and Neglect, 2008; 20 (3): 276-300. - Elder Maltreatment Screen Quality Measures: Elder Maltreatment Screen and Follow-Up Plan Elder Maltreatment Screen: <Positive AND Follow-up Plan Documented> [G8733] (pt reported incident from alternative facility, police contacted [employer] and have interviewed pt)
--- NOTE | 2019-01-24 09:36 | Rehab Discharge Summary ---
Patient Information - Patient Information Diagnosis: T11 Compression Fracture Ordered Treatment: PT Evaluate and Treat Surgery: No History: Detail (Patient was admitted to a swing bed on 01/18/19.) Past Medical/Surgical Hx: PAST MEDICAL/SURGICAL HISTORY Past Surgical History BACK PMH - Respiratory Hx Respiratory Disorders No PMH - Cardiovascular Hx Cardiovascular Disorders Yes Hx Hypertension Yes Comment: Mitral Valve Prolapse PMH - Neuro Hx Neurological Disorders Yes Hx Seizures No Comment: memory loss, confusion PMH - GI Hx Gastrointestinal Disorders Yes Hx Gastroesophageal Reflux Yes PMH - Hx Genitourinary Disorders No PMH - Endocrine Hx Endocrine Disorders No Hx Diabetes No Hx Thyroid Disease Yes: goiter PMH - Musculoskeletal Hx Musculoskeletal Disorders Yes Hx Arthritis Yes: Rheumatoid Hx Back Injury Yes: comp fx t11 Hx Osteoporosis Yes PMH - Psych Hx Psychiatric Problems No PMH - Hematology/Oncology Hx Hematology/Oncology No Disorders Premorbid Status: Detail (Patient stated that she was independent in ADLs of cooking, laundry, and housework prior to her injury. She reported that she was able to walk community distances independently without an AD and could independently negotiate the 5 stairs in and out of her home.) Social History: Detail (Pt lives with spouse in a 1 story house. She has 5 steps and 2 railings at the front entrance and 4 steps and 1 railing at the rear entrance. She has a tub/shower combination with a grab bar and a standard height toilet, no grab bar. She typically sits down into the tub to bathe.) Precautions: [place], Fall, Other (Patient wears a TLSO that may be put on at the edge of the bed. No bending or twisting.) Subjective Information - Subjective Information Per Patient (The patient had no complaints of pain.) Objective Data - Mental Status Patient Orientation: Person (The patient was able to identify herself, birthdate and age.), Place (The patient was able to indentify that she was at [facility] Time (The paient was able to identify month, year and her prior accident). The patient at times exhibited poor safety judgement. The patient was highly distracted and needed to be cued to be brought back to task.) - Visual Perception Deficit (The patient when ambulating occasionally walked toward objects on both sides.) - ROM Within normal limits (Patient's LE AROM is WNL. Lumbar AROM was not tested secondary to T11 compression fracture.) - Strength/Tone Not within normal limits (The patient's LE strength was not retested secondary to patient leanving AMA . Initially patient's strength was generally 5/5 except for bilateral hip and knee flexors 4/5 .) - Bed Mobility Independent (The patient was independent with supine to and from sit transfer.) - Transfers Independent (The patient was independent with sit to and from stand transfer and toilet transfers.) - Balance Balance Sitting: Good Balance Standing: Good (The patient's score using the Tinetti Assessment Tool was 26/28 (low risk). The patient's balance using the Cruz Balance Scale was 37/56 which is in the Medium Fall Risk Category. The patient has difficulty with higher level balance tasks incluing standing on one foot, tandemstaning and alternating stool touch.) - Gait Detail (The patient ambulated without assistive device distances of 500 feet plus with supervision for safety. Supervision for all mobility activities is recommended secondary to cognitive status.) Therapy Assessment - Therapy Assessment Detail (The patient was independent with all mobility. As perviously stated supervision for safety is recommended secondary to cognitive status. The patient left AMA on 01/22/19 so no training of patient's was completed. (The patient's was not present for any Rehab treatments.) Patient Education - Patient Education Teaching Topic: Exercise/Activity (The patient was instruction in LE strengthening HEP seated.) Response: Return Demonstration Teaching Method: Demonstration, Handout Teaching Recipient: Patient Barriers To Learning: Cognitive/Verbal, Cognitive/Written Problem List - Problem List Physical Therapy Problem List: Detail (1. Decreased balance 2. Weakness in LEs 3. Gait abnormalities 4. Decreased ability to climb stairs) Occupational Therapy Problem List: Detail (1. Need to further assess tub transfer and bathing. 2. Need to further assess IADL tasks.) Goals - Goals Physical Therapy Goals: 1. Patient will be able to ambulate community distances with or without an assistive device with supervision for safety to return to her prior functional level following discharge. GOAL MET. 2. Patient will be able to ascend and descend 5 stairs safely and correctly to be able to get in and out of her home with supervision for safety. GOAL MET. 3. Patient's balance will be formally assessed using the Cruz Balance scale to measure her higher level balance abilities. GOAL MET. 4. Patient will be independent in a HEP to help increase strength of LEs to maintain her functional status. GOAL MET. 5. Patient's will observe her balance activities, gait, and stair training during a PT session to be able to assist the patient at home. (NOT MET ) Occupational Therapy Goals: 1. Pt will be safe and Ind with tub transfer and bathing. 2. Pt will be Ind with kitchen tasks. Plan - Plan Physical Therapy Plan: The patient left AMA on 01/22/19. Occupational Therapy Plan: OT 2-4 times per week to address goals as above.
--- NOTE | 2019-01-24 10:59 | Rehab Discharge Summary ---
Patient Information - Patient Information Diagnosis: T11 Compression Fracture Ordered Treatment: OT Evaluate and Treat Surgery: No History: Detail (Patient was admitted to a swing bed on 01/18/19.) Past Medical/Surgical Hx: PAST MEDICAL/SURGICAL HISTORY Past Surgical History BACK PMH - Respiratory Hx Respiratory Disorders No PMH - Cardiovascular Hx Cardiovascular Disorders Yes Hx Hypertension Yes Comment: Mitral Valve Prolapse PMH - Neuro Hx Neurological Disorders Yes Hx Seizures No Comment: memory loss, confusion PMH - GI Hx Gastrointestinal Disorders Yes Hx Gastroesophageal Reflux Yes PMH - Hx Genitourinary Disorders No PMH - Endocrine Hx Endocrine Disorders No Hx Diabetes No Hx Thyroid Disease Yes: goiter PMH - Musculoskeletal Hx Musculoskeletal Disorders Yes Hx Arthritis Yes: Rheumatoid Hx Back Injury Yes: comp fx t11 Hx Osteoporosis Yes PMH - Psych Hx Psychiatric Problems No PMH - Hematology/Oncology Hx Hematology/Oncology No Disorders Premorbid Status: Detail (Patient stated that she was independent in ADLs of cooking, laundry, and housework prior to her injury. She reported that she was able to walk community distances independently without an AD and could independently negotiate the 5 stairs in and out of her home.) Social History: Detail (Pt lives with spouse in a 1 story house. She has 5 steps and 2 railings at the front entrance and 4 steps and 1 railing at the rear entrance. She has a tub/shower combination with a grab bar and a standard height toilet, no grab bar. She typically sits down into the tub to bathe.) Precautions: [place], Fall, Other (Patient wears a TLSO that may be put on at the edge of the bed. No bending or twisting.) Objective Data - Pain Pain Present: No - Mental Status Patient Orientation: Person - Visual Perception Appears within normal limits for therapeutic activities - ROM Within normal limits (Yovany UE AROM WNL) - Strength/Tone Within normal limits ([place]any UE strength 4+/5) - Coordination Appears within normal limits for therapeutic activities - Bed Mobility Independent - Transfers Independent - Balance Balance Sitting: Good Balance Standing: Good - Sensation Intact - Gait Detail (Pt ambulating household distances without an assistive device.) - ADL's/IADL's Detail (Pt is Ind with total body dressing, she requires verbal cues for TLSO. She was able to demonstrate transferring into and out of the bathtub as well as taking a bath Indly using grab bars.) Therapy Assessment - Therapy Assessment Detail (Pt is Ind with self cares although she requires assist with TLSO) Problem List - Problem List Physical Therapy Problem List: Detail (1. Decreased balance 2. Weakness in LEs 3. Gait abnormalities 4. Decreased ability to climb stairs) Occupational Therapy Problem List: Detail (1. Need to further assess tub transfer and bathing. 2. Need to further assess IADL tasks.) Goals - Goals Physical Therapy Goals: 1. Patient will be able to ambulate community distances with or without an assistive device with supervision for safety to return to her prior functional level following discharge. GOAL MET. 2. Patient will be able to ascend and descend 5 stairs safely and correctly to be able to get in and out of her home with supervision for safety. GOAL MET. 3. Patient's balance will be formally assessed using the Cruz Balance scale to measure her higher level balance abilities. GOAL MET. 4. Patient will be independent in a HEP to help increase strength of LEs to maintain her functional status. GOAL MET. 5. Patient's will observe her balance activities, gait, and stair training during a PT session to be able to assist the patient at home. Occupational Therapy Goals: Goal met: 1. Pt will be safe and Ind with tub transfer and bathing. Goal not assessed: 2. Pt will be Ind with kitchen tasks. Prognosis - Prognosis Moderate (Depending on cognitive status) Plan - Plan Physical Therapy Plan: Patient will be seen for 1-2 sessions, M-F for gait training, stair training, therapeutic exercise, therapeutic activities, HEP instruction, and neuromuscular re-education. Most PT goals have been met at this time. Patient's should observe a PT session to be able to assist the patient when she returns home. Occupational Therapy Plan: Pt left hospital unexpectedly with no further OT scheduled at this time.
== END 2019-01-22 02:29 | disposition left against medical advice (07) | DRG 552 ==
LOC: MEDSURG 15:23
PROVIDERS: ADMIT Internal Medicine; ATTEND Internal Medicine
DX: S22.080A Wedge compression fracture of T11-T12 vertebra, initial encounter for closed fracture (principal); W10.8XXA Fall (on) (from) other stairs and steps, initial encounter; R41.0 Disorientation, unspecified; R53.1 Weakness; I34.1 Nonrheumatic mitral (valve) prolapse; E04.9 Nontoxic goiter, unspecified; M06.9 Rheumatoid arthritis, unspecified
CPT/HCPCS: 99306; 99316; J1650